=== PATIENT | male | born 1975 | race African-American/Black ===

== ENCOUNTER 2017-11-10 16:59 | Emergency (ER) | payer SELFPAY ==
[~2017-11-10] VITALS: Ht 177.8 cm; Wt 79.4 kg
[2017-11-10 17:07] VITALS: BP 118/82
[2017-11-10] MEDS ORDERED: cefTRIAXone 1,000 MG in LIDOCAINE MPF 1% - **ER/OR** 2.1 ML IM ONE (17:30)
[2017-11-10 18:03] VITALS: BP 118/82
[2017-11-14 09:49] LABS: CHLAMYDIA TRACHOMATIS AMP DNA NEGATIVE (NEGATIVE)
== END 2017-11-10 18:03 | disposition home or self-care (01) ==
LOC: MED 16:59 → EDBD 16:59 → MED 18:03
DX: Z20.2 Contact with and (suspected) exposure to infections with a predominantly sexual mode of transmission (principal); R30.0 Dysuria
CPT/HCPCS: 36415; 81002; 87491; 96372; 99283; J0696; J2001

== ENCOUNTER 2017-12-27 19:33 | Emergency (ER) | payer SELFPAY ==
[~2017-12-27] VITALS: Ht 175.3 cm; Wt 80.9 kg
[2017-12-27 19:46] VITALS: BP 125/76
[2017-12-27 20:31] LABS: APPEARANCE,URINE CLEAR (CLEAR); BILIRUBIN,URINE NEGATIVE (NEGATIVE); BLOOD, URINE NEGATIVE (NEGATIVE); COLOR,URINE YELLOW (YELLOW); LEUKOCYTE ESTERASE ,URINE NEGATIVE (NEGATIVE); NITRITE, URINE NEGATIVE (NEGATIVE); UGLUCOSE NEGATIVE (NEGATIVE)
[2017-12-27] MEDS ORDERED: AZITHROMYCIN 250 MG TAB PO ONE (22:05)
[2017-12-27] MEDS ORDERED: cefTRIAXone 250 MG in LIDOCAINE MPF 1% - **ER/OR** 0.9 ML IM ONE (22:05)
[2017-12-27 22:28] VITALS: BP 136/84
[2017-12-31 06:08] LABS: CHLAMYDIA TRACHOMATIS AMP DNA Negative (Negative)
== END 2017-12-27 22:29 | disposition home or self-care (01) ==
LOC: MED 19:33
DX: A64 Unspecified sexually transmitted disease (principal); R03.0 Elevated blood-pressure reading, without diagnosis of hypertension
CPT/HCPCS: 36415; 81003; 87491; 96372; 99284; J0696; J2001; 99283